=== PATIENT | male | born 1970 | race African-American/Black ===

== ENCOUNTER 2022-06-08 10:41 | Inpatient (IN) | payer SELFPAY ==
[2022-06-08] MEDS ORDERED: Sodium Chloride 0.9% 1,000 ML IV STA (10:46)
[2022-06-08] MEDS ORDERED: Sodium Chloride 0.9% 20 ML SDV IV PRN (10:46)
[2022-06-08] MEDS ORDERED: Sodium Chloride 0.9% 10 ML Syringe FLUSH PRN (10:46)
[2022-06-08] MEDS ORDERED: Sodium Chloride 0.9% 2.5 ML Syringe FLUSH PRN (10:46)
[2022-06-08] MEDS ORDERED: niCARdipine/Normal Saline 20 MG/200 ML BAG IV SCH (11:00)
[2022-06-08 11:36] LABS: CARBON DIOXIDE,CO2 25.6 mmol/L (21.0-32.0); POTASSIUM,K 3.8 mmol/L (3.5-5.1)
[2022-06-08] MEDS ORDERED: Iopamidol 755 MG/ML 500 ML Multipack Bottle IVPUSH ONE (11:40)
[2022-06-08 12:28] LABS: CORONAVIRUS COVID-19 NAA NEGATIVE (NEGATIVE); INFLUENZA A NAA NEGATIVE (NEGATIVE); INFLUENZA B NAA NEGATIVE (NEGATIVE); RESPIRATORY SYNCYTIAL VIR NAA NEGATIVE (NEGATIVE)
[2022-06-08] MEDS ORDERED: Gadobenate Dimeglumine 529 MG/ML 20 ML SDV IVPUSH STA (13:37)
[2022-06-08] MEDS ORDERED: Acetaminophen 325 MG Tab PO PRN (14:33)
[2022-06-08] MEDS ORDERED: Labetalol 100 MG/20 ML MDV IVPUSH PRN (14:33)
[2022-06-08 15:03] LABS: HEMOGLOBIN A1C 5.7 %
[2022-06-08] MEDS: Clopidogrel 75 MG Tab PO SCH (15:37)
[2022-06-08] MEDS: Aspirin 81 MG Tab.Chew PO SCH (15:37)
[2022-06-08] MEDS: atorvaSTATin 40 MG Tab PO SCH (20:29)
[2022-06-09 07:18] LABS: CARBON DIOXIDE,CO2 26.9 mmol/L (21.0-32.0)
[2022-06-09] MEDS: Enoxaparin 40 MG/0.4 ML Syringe SUBCUT SCH (08:54)
[2022-06-09] MEDS: Clopidogrel 75 MG Tab PO SCH (08:55)
[2022-06-09] MEDS: Aspirin 81 MG Tab.Chew PO SCH (08:55)
[2022-06-09] MEDS ORDERED: Aspirin 81 MG Tab.Chew PO SCH (09:00)
[2022-06-09] MEDS: amLODIPine 5 MG Tab PO SCH (15:59)
[2022-06-09] MEDS: atorvaSTATin 40 MG Tab PO SCH (20:00)
[2022-06-10 06:50] LABS: CARBON DIOXIDE,CO2 26.5 mmol/L (21.0-32.0); POTASSIUM,K 3.7 mmol/L (3.5-5.1)
[2022-06-10] MEDS: Enoxaparin 40 MG/0.4 ML Syringe SUBCUT SCH (09:28)
[2022-06-10] MEDS: amLODIPine 5 MG Tab PO SCH (09:29)
[2022-06-10] MEDS: Clopidogrel 75 MG Tab PO SCH (09:30)
[2022-06-10] MEDS: Aspirin 81 MG Tab.Chew PO SCH (09:30)
[2022-06-10] MEDS ORDERED: amLODIPine 5 MG Tab PO ONE (12:14)
[2022-06-10] MEDS ORDERED: amLODIPine 5 MG Tab ONE (15:14)
[2022-06-10] MEDS: atorvaSTATin 40 MG Tab PO SCH (21:06)
[2022-06-11 07:09] LABS: CARBON DIOXIDE,CO2 27.3 mmol/L (21.0-32.0); POTASSIUM,K 3.9 mmol/L (3.5-5.1)
[2022-06-11] MEDS ORDERED: amLODIPine 5 MG Tab PO SCH (09:00)
[2022-06-11] MEDS: Enoxaparin 40 MG/0.4 ML Syringe SUBCUT SCH (09:26)
[2022-06-11] MEDS: Clopidogrel 75 MG Tab PO SCH (09:27)
[2022-06-11] MEDS: Aspirin 81 MG Tab.Chew PO SCH (09:27)
[2022-06-11] MEDS ORDERED: Chlorthalidone 25 MG Tab PO SCH (12:00)
== END 2022-06-11 14:15 | disposition home or self-care (01) | DRG 66 ==
LOC: MW.ED 10:41 → MW.MS 12:56
PROVIDERS: ADMIT Internal Medicine; ATTEND Internal Medicine
DX: I63.9 Cerebral infarction, unspecified (principal); I10 Essential (primary) hypertension; E66.09 Other obesity due to excess calories; Z68.32 Body mass index [BMI] 32.0-32.9, adult; F17.210 Nicotine dependence, cigarettes, uncomplicated; E78.00 Pure hypercholesterolemia, unspecified; Z86.73 Personal history of transient ischemic attack (TIA), and cerebral infarction without residual deficits; Z79.899 Other long term (current) drug therapy; Z20.822 Contact with and (suspected) exposure to COVID-19; R47.01 Aphasia; R53.1 Weakness; E78.5 Hyperlipidemia, unspecified; R29.704 NIHSS score 4
CPT/HCPCS: 0241U; 36415; 70450; 70450-26; 70496; 70496-26; 70498; 70498-26; 70553; 70553-26; 71045; 71045-26; 80048; 80053; 80061; 80305-QW; 81003; 83036; 83735; 84443; 84484; 85025; 85610; 85730; 93005; 93306; 96365; 96366; 97110-GP; 97162-GP; 97166-GO; 97530-GP; 99285-25; A9270-GY; A9577; J1650; J3490; J7030; Q9967

== ENCOUNTER 2023-12-19 09:15 | Emergency (ER) | payer MEDICAID, OTHER ==
[2023-12-19] MEDS: Sodium Chloride 0.9% 10 ML Syringe FLUSH PRN (09:38)
[2023-12-19] MEDS: Sodium Chloride 0.9% 2.5 ML Syringe FLUSH PRN (09:38)
[2023-12-19] MEDS: Albuterol/Ipratropium 3.0-0.5 MG/3 ML Neb Soln NEB ONE (09:39)
[2023-12-19 09:52] LABS: BASOPHILS ABSOLUTE AUTO 0.06 K/uL (0.00-0.20); EOSINOPHILS ABSOLUTE AUTO 0.06 K/uL (0.00-0.45); HEMATOCRIT 49.2 % (42.0-52.0); HEMOGLOBIN 15.6 g/dL (14.0-18.0); IMMATURE GRAN ABSOLUTE AUTO 0.02 K/uL (0.00-0.05); IMMATURE GRAN PERCENT AUTO 0.3 % (0.0-0.4); LYMPHOCYTES ABSOLUTE AUTO 2.32 K/uL (1.00-4.80); LYMPHOCYTES PERCENT AUTO 39.3 % (24.0-44.0); MEAN CORPUSCULAR HEMOGLOBIN 23.1 pg (28.0-32.0); MEAN CORPUSCULAR HGB CONC 31.7 g/dL (32.0-36.0); MEAN CORPUSCULAR VOLUME 72.8 fL (83.0-99.0); MEAN PLATELET VOLUME 8.5 fL (9.4-12.4); MONOCYTES ABSOLUTE AUTO 0.45 K/uL (0.00-0.80); MONOCYTES PERCENT AUTO 7.6 % (0.0-8.0); NEUTROPHILS PERCENT AUTO 50.8 % (41.0-71.0); PLATELET COUNT,PLT 243 K/uL (150-400); RED BLOOD CELL COUNT 6.76 M/uL (4.52-5.90); WHITE BLOOD CELL COUNT,WBC 5.91 K/uL (3.9-11.3)
[2023-12-19 10:26] LABS: A/G RATIO 0.8 (0.9-1.6); ALBUMIN 3.4 g/dL (3.4-5.0); BILIRUBIN TOTAL 0.5 mg/dL (0.2-1.0); CALCIUM 8.6 mg/dL (8.5-10.1); CARBON DIOXIDE,CO2 25.5 mmol/L (21.0-32.0); CREATININE 1.3 mg/dL (0.8-1.3); EST CRCL DRUG DOSING (CG) 65.71 mL/min; MAGNESIUM 1.9 mg/dL (1.8-2.4); POTASSIUM,K 3.6 mmol/L (3.5-5.1); PROTEIN TOTAL,TP 7.8 g/dL (6.4-8.2)
== END 2023-12-19 13:31 | disposition home or self-care (01) ==
LOC: MW.ED 09:15
DX: I10 Essential (primary) hypertension (principal); R06.02 Shortness of breath; M79.669 Pain in unspecified lower leg; Z79.82 Long term (current) use of aspirin; Z79.899 Other long term (current) drug therapy; Z79.02 Long term (current) use of antithrombotics/antiplatelets; E78.00 Pure hypercholesterolemia, unspecified; Z86.73 Personal history of transient ischemic attack (TIA), and cerebral infarction without residual deficits
CPT/HCPCS: 36415; 71045; 80053; 83690; 83735; 83880; 84484; 85025; 85379; 93005; 99285; J3490; 93010; 99282; J7620-GY

== ENCOUNTER 2025-05-13 22:54 | Emergency (ER) | payer OTHER ==
[2025-05-13 23:07] LABS: BASOPHILS ABSOLUTE AUTO 0.07 K/uL (0.00-0.20); BASOPHILS PERCENT AUTO 0.7 % (0.0-1.0); EOSINOPHILS ABSOLUTE AUTO 0.24 K/uL (0.00-0.45); EOSINOPHILS PERCENT AUTO 2.3 % (0.0-6.0); IMMATURE GRAN ABSOLUTE AUTO 0.05 K/uL (0.00-0.05); IMMATURE GRAN PERCENT AUTO 0.5 % (0.0-0.4); LYMPHOCYTES ABSOLUTE AUTO 4.30 K/uL (1.00-4.80); LYMPHOCYTES PERCENT AUTO 42.0 % (24.0-44.0); MEAN PLATELET VOLUME 9.1 fL (9.4-12.4); MONOCYTES ABSOLUTE AUTO 0.96 K/uL (0.00-0.80); MONOCYTES PERCENT AUTO 9.4 % (0.0-8.0); NEUTROPHILS ABSOLUTE AUTO 4.62 K/uL (1.80-7.70); NEUTROPHILS PERCENT AUTO 45.1 % (41.0-71.0); NRBC ABSOLUTE 0.00 K/uL (0.00-0.02); NRBC PERCENT 0.0 /100WBC (0.0-0.2); PLATELET COUNT,PLT 239 K/uL (150-400); RED BLOOD CELL COUNT 6.32 M/uL (4.52-5.90); WHITE BLOOD CELL COUNT,WBC 10.24 K/uL (3.9-11.3)
[2025-05-13 23:38] LABS: A/G RATIO 0.9 (0.9-1.6); ALANINE AMINOTRANSFERASE,ALT 27 IU/L (14-63); ASPARTATE AMNIOTRANSFERASE,AST 15 IU/L (15-37); BILIRUBIN TOTAL 0.3 mg/dL (0.2-1.0); BLOOD UREA NITROGEN,BUN 20 mg/dL (7.0-18.0); CARBON DIOXIDE,CO2 29.3 mmol/L (21.0-32.0); CHLORIDE,CL 105 mmol/L (98-107); CREATININE 1.4 mg/dL (0.8-1.3); GLUCOSE RANDOM 97 mg/dL (74-106); POTASSIUM,K 3.8 mmol/L (3.5-5.1); PROTEIN TOTAL,TP 8.3 g/dL (6.4-8.2); SODIUM,NA 143 mmol/L (136-148)
[2025-05-13 23:42] LABS: ESTIMATED GFR 60 mL/min (>60)
[2025-05-14] MEDS: fentaNYL 100 MCG/2 ML SDV IVPUSH ONE (00:13)
[2025-05-14] MEDS: Labetalol 100 MG/20 ML MDV IVPUSH ONE (00:25)
== END 2025-05-14 01:43 | disposition home or self-care (01) ==
LOC: MW.ED 22:54
DX: I10 Essential (primary) hypertension (principal); N17.9 Acute kidney failure, unspecified; E78.00 Pure hypercholesterolemia, unspecified; Z86.73 Personal history of transient ischemic attack (TIA), and cerebral infarction without residual deficits; Z79.899 Other long term (current) drug therapy; Z79.82 Long term (current) use of aspirin; Z75.3 Unavailability and inaccessibility of health-care facilities; Z79.02 Long term (current) use of antithrombotics/antiplatelets; W19.XXXA Unspecified fall, initial encounter
CPT/HCPCS: 36415; 70450; 71045; 72125; 80053; 83880; 84484; 85025; 93005; 96374; 96375; 99284; J1920; J3010; J7030; 93010